=== PATIENT | female | born 1945 | race Caucasian/White ===

== ENCOUNTER 2021-12-01 11:35 | Emergency (ER) | payer OTHER ==
[2021-12-01] MEDS ORDERED: NORCO 5-325 TA1 EACH PO (13:03)
== END 2021-12-01 13:16 | disposition home or self-care (01) ==
LOC: FER 11:35
DX: S46.911A Strain of unspecified muscle, fascia and tendon at shoulder and upper arm level, right arm, initial encounter (principal); S40.021A Contusion of right upper arm, initial encounter; Z88.7 Allergy status to serum and vaccine; Z88.5 Allergy status to narcotic agent; W18.2XXA Fall in (into) shower or empty bathtub, initial encounter; Y92.009 Unspecified place in unspecified non-institutional (private) residence as the place of occurrence of the external cause; Z28.310 Unvaccinated for COVID-19
CPT/HCPCS: 99283